=== PATIENT | male | born 1950 | race Caucasian/White ===

== ENCOUNTER 2017-04-09 13:58 | Outpatient (CLI) | payer MEDICARE ==
--- NOTE | 2017-04-09 16:26 | CT ---
CT ABDOMEN AND PELVIS WITHOUT CONTRAST: HISTORY: Renal stone, right side abdominal pain. FINDINGS: Absence of oral and IV contrast reduces the sensitivity of the exam, particularly for the evaluation of solid organs involved. The lung bases are clear. A calcified gallstone is present. A small hiatal hernia is noted. The s pleen measures 14.5 cm in length. No free air or free fluid is seen in the abdomen or pelvis. There is a tiny calculus in the right kidney. No calculi are seen in the left kidney, either ureter , or the urinary bladder. No hydroureteral nephrosis noted on either side. There is a 1.6 cm small exophytic lesion arising from the anterior aspect of the superior pole of the left kidney and a 4.4 cm complex mass arising from the inferior pole of the left kidney. There are vascular calcifications without evidence of aneurysmal dilatation of the abdominal aorta. There is contrast in the colon. The appendix is normal. A small fat-containing left inguinal alma delia ia is present. There are degenerative changes in the spine. IMPRESSION: 1. Small hiatal hernia. 2. Cholelithiasis. 3. Splenomegaly. 4. Tiny nonobstructing right renal calculus. 5. Suspicious masses in the left kidney. A contrast-enhanced CT scan using the renal mass protocol is recommended. POS: ELLIS
[2017-04-09 22:03] LABS: Bilirubin Small (Negative); Blood, Urine Large (Negative); Glucose, Urine (Dipstick) Negative (Negative); Leukocyte Trace (Negative); Nitrite Positive (Negative); Protein, Urine (Dipstick) 100 mg/dL (Neg-Trace); Specific Gravity, Urine 1.025 (1.005-1.030); Urobilinogen 0.2 mg/dL (0.2-1.0); pH, Urine 5.5 (5.0-9.0)
[2017-04-09 22:21] LABS: Clarity Cloudy (Clear)
[2017-04-09 22:26] LABS: Bacteria/HPF 1+ HPF (None Seen); Crystals/HPF 3+ AMORPH URATES HPF (Negative); RBC/HPF GREATER THAN 50-TNTC HPF (0-3)
== END 2017-04-09 13:59 | disposition home or self-care (01) ==
LOC: NAV CT 13:58
DX: N20.0 Calculus of kidney (principal); K44.9 Diaphragmatic hernia without obstruction or gangrene; K80.20 Calculus of gallbladder without cholecystitis without obstruction; R10.11 Right upper quadrant pain; R16.1 Splenomegaly, not elsewhere classified
CPT/HCPCS: 74176; 81003; 81015

== ENCOUNTER 2021-12-27 14:42 | Emergency (ER) | payer MEDICARE ==
[2021-12-27 15:51] LABS: #Basophils 0.1 thou/uL (0.0-0.2); #Eosinphils 0.1 thou/uL (0.0-0.7); #Monocytes 0.7 thou/uL (0.11-0.59); #Neutrophils 6.4 thou/uL (1.40-6.50); %Basophils 1.2 % (0.0-1.0); %Eosinophils 0.9 % (0.0-10.0); %Lymphocytes 12.3 % (21.0-51.0); %Monocytes 8.6 % (0.0-10.0); Hemoglobin 15.4 g/dL (14.0-18.0); Mean Corpuscular HGB CONC 31.7 g/dL (32.0-36.0); Mean Corpuscular Hemoglobin 28.9 pg (27.0-31.0); Mean Corpuscular Volume 91.3 fL (78.0-98.0); Platelet Count 231 thou/uL (130-400); RBC Distribution Width 12.9 % (11.5-14.5); Red Blood Cell (RBC) Count 5.34 mill/uL (4.70-6.10); White Blood Cell (WBC) Count 8.2 thou/uL (4.8-10.8)
[2021-12-27 16:08] LABS: ALT (SGPT) 19 U/L (8-55); AST (SGOT) 17 U/L (5-34); Albumin 4.4 g/dL (3.4-4.8); Alkaline Phosphatase 81 U/L (40-110); Anion Gap 15 mmol/L (10-20); BUN (Urea Nitrogen) 22 mg/dL (8.4-25.7); Bilirubin, Total 1.3 mg/dL (0.2-1.2); Calc. Creatinine Clearance 0 mL/min (70-130); Calcium 9.7 mg/dL (7.8-10.44); Carbon Dioxide 21 mmol/L (23-31); Chloride 105 mmol/L (98-107); Globulin 3.5 g/dL (2.4-3.5); Glucose 111 mg/dL (83-110); Protein, Total 7.9 g/dL (5.8-8.1); Sodium 137 mmol/L (136-145)
[2021-12-27 16:23] LABS: Clarity Clear (Clear)
[2021-12-27 16:25] LABS: Bilirubin Negative (Negative); Blood, Urine Trace (Negative); Glucose, Urine (Dipstick) Negative (Negative); Ketone, Urine Negative (Negative); Leukocyte Negative (Negative); Nitrite Negative (Negative); Protein, Urine (Dipstick) Trace mg/dL (Neg-Trace); Urobilinogen 0.2 mg/dL (Less than 2); pH, Urine 5.5 (5.0-9.0)
[2021-12-27 16:31] LABS: RBC/HPF 0-3 HPF (0-3); WBC/HPF 0-3 HPF (0-3)
[2021-12-27 16:32] LABS: Mucous/LPF Few LPF (<2+)
== END 2021-12-27 17:00 | disposition home or self-care (01) ==
LOC: NAV ERS 14:42
DX: H81.10 Benign paroxysmal vertigo, unspecified ear (principal); I10 Essential (primary) hypertension; I48.91 Unspecified atrial fibrillation; Z79.01 Long term (current) use of anticoagulants; Z79.82 Long term (current) use of aspirin; Z79.899 Other long term (current) drug therapy
CPT/HCPCS: 71045; 80053; 81003; 81015; 85025; 93005